=== PATIENT | male | born 1955 | race African-American/Black ===

== ENCOUNTER 2019-07-31 19:23 | Inpatient (IN) | payer OTHER ==
[~2019-07-31] VITALS: Ht 182.9 cm; Wt 72.1 kg
[2019-07-31] MEDS ORDERED: SODIUM CHLORIDE 0.9% 1000ML BAG (SEPSIS BOLUS) IV ONE (21:15)
[2019-07-31] MEDS ORDERED: LEVOFLOXACIN 750MG PREMIX 150 ML IV ONE (21:15)
[2019-07-31 21:25] LABS: BASOPHILS % 0.1 % (0.0-2.0); EOSINOPHILS % 0.1 % (0.0-5.0); HEMATOCRIT. 42.4 % (42.0-52.0); HEMOGLOBIN. 14.5 g/dL (14.0-18.0); LYMPHOCYTES % 8.2 % (20.0-50.0); MEAN CORPUSCULAR HEMOGLOBIN 32.7 pg (28.0-32.0); MEAN CORPUSCULAR VOLUME 95.5 fL (80.0-94.0); MEAN PLATELET VOLUME 9.2 fl (7.4-10.4); MONOCYTES % 10.5 % (2.0-8.0); NEUTROPHILS % 81.1 % (40.0-76.0); PLATELET 188 x1000/uL (130-400); RED BLOOD CELL COUNT 4.44 mill/uL (4.7-6.1); RED CELL DISTRIBUTION WIDTH 13.1 % (11.6-14.6)
[2019-07-31 21:26] LABS: CHLORIDE 99 mEq/L (98-107)
[2019-07-31 21:28] LABS: INR 1.1; PROTHROMBIN TIME 11.8 sec (9.6-11.0)
[2019-07-31 21:31] LABS: CLARITY URINE CLOUDY (CLEAR); COLOR URINE DARK YELLOW (YELLOW); KETONES URINE NEGATIVE (NEGATIVE); LEUKOCYTE ESTERASE URINE 3+ (NEGATIVE); NITRITE URINE NEGATIVE (NEGATIVE); OCCULT BLOOD URINE 2+ (NEGATIVE); PH URINE 5.5 (4.5-8.0); PROTEIN URINE 2+ (NEGATIVE); SPECIFIC GRAVITY URINE 1.017 (1.005-1.030)
[2019-08-01] MEDS ORDERED: ACETAMINOPHEN 325MG TABLET PO ONE (00:15)
[2019-08-01 11:00] VITALS: BP 104/65
[2019-08-01 11:36] LABS: BG BASE EXCESS 0.9 mmol/L (-2.0-2.0); BG CARBOXYHEMOGLOBIN 1.1 % (0.5-1.5); BG DEOXYHEMOGLOBIN 4.5 % (0.0-5.0); BG FRACTION INSPIRED OXYGEN 21; BG HCO3 ACT 24.9 mmol/L (22.0-26.0); BG METHEMOGLOBIN 0.3 % (0.0-1.5); BG OXYGEN SATURATION 95.4 % (92.0-98.5); BG OXYHEMOGLOBIN 94.1 % (94.0-97.0); BG PCO2 37.8 mmHg (35.0-45.0); BG PH 7.437 (7.350-7.450); BG PO2 76.6 mmHg (75.0-100.0); BG SAMPLE SITE RIGHT RADIAL; BG TOTAL HEMOGLOBIN 12.5 g/dL (12.0-18.0); BG VENT MODE ROOM AIR
[2019-08-01] MEDS: ENOXAPARIN 40MG/0.4ML SYR SUBCUT SCH (12:50)
[2019-08-01] MEDS ORDERED: LEVOFLOXACIN 500MG PREMIX 100 ML IV SCH (13:00)
[2019-08-01 16:00] VITALS: BP 120/80
[2019-08-01] MEDS ORDERED: ACETAMINOPHEN 650MG SUPP PR PRN (17:30)
[2019-08-01] MEDS ORDERED: BISACODYL 10MG SUPP PR PRN (17:30)
[2019-08-01] MEDS ORDERED: LACTULOSE 20G/30ML UDC PO PRN (17:30)
[2019-08-01] MEDS ORDERED: IPRATROPIUM/ALBUTEROL 0.5-3(2.5)MG/3ML NEB HHN PRN (17:30)
[2019-08-01] MEDS ORDERED: HYDRALAZINE 20MG/ML VIAL IV PRN (17:30)
[2019-08-01] MEDS ORDERED: HYDROCODONE/ACETAMINOPHEN 5/325MG TABLET PO PRN (17:38)
[2019-08-01] MEDS ORDERED: ALBUTEROL 6.7GM HFA INHALER INH PRN (17:45)
[2019-08-01 17:48] LABS: BG BASE EXCESS 3.6 mmol/L (-2.0-2.0); BG CARBOXYHEMOGLOBIN 1.3 % (0.5-1.5); BG DEOXYHEMOGLOBIN 5.2 % (0.0-5.0); BG HCO3 ACT 27.4 mmol/L (22.0-26.0); BG METHEMOGLOBIN 0.3 % (0.0-1.5); BG OXYGEN SATURATION 94.7 % (92.0-98.5); BG OXYHEMOGLOBIN 93.2 % (94.0-97.0); BG PCO2 38.7 mmHg (35.0-45.0); BG PH 7.468 (7.350-7.450); BG PO2 69.7 mmHg (75.0-100.0); BG SAMPLE SITE RIGHT RADIAL; BG TOTAL HEMOGLOBIN 12.8 g/dL (12.0-18.0); BG VENT MODE ROOM AIR
[2019-08-01] MEDS: SODIUM CHLORIDE 0.45% 1,000 ML IV SCH (18:23)
[2019-08-01 20:00] VITALS: BP 129/84
[2019-08-01 20:51] LABS: BASOPHILS % 0.4 % (0.0-2.0); EOSINOPHILS % 0.2 % (0.0-5.0); HEMATOCRIT. 36.5 % (42.0-52.0); HEMOGLOBIN. 12.4 g/dL (14.0-18.0); LYMPHOCYTES % 10.5 % (20.0-50.0); MEAN CORPUSCULAR HEMOGLOBIN 32.1 pg (28.0-32.0); MEAN CORPUSCULAR VOLUME 94.3 fL (80.0-94.0); MEAN PLATELET VOLUME 8.6 fl (7.4-10.4); MONOCYTES % 12.9 % (2.0-8.0); PLATELET 170 x1000/uL (130-400); RED BLOOD CELL COUNT 3.87 mill/uL (4.7-6.1); RED CELL DISTRIBUTION WIDTH 12.8 % (11.6-14.6)
[2019-08-01 20:54] LABS: CHLORIDE 103 mEq/L (98-107)
[2019-08-01] MEDS ORDERED: VANCOMYCIN 1500MG in DEXTROSE 5% WATER 250ML IV NR (21:00)
[2019-08-01] MEDS: ACETAMINOPHEN 325MG TABLET PO PRN (21:05)
[2019-08-01] MEDS: FAMOTIDINE 20MG TABLET PO SCH (21:05)
[2019-08-01] MEDS ORDERED: PIPERACILLIN/TAZOBACTAM 2.25 G in DEXTROSE 5% WATER 50 ML IV SCH (22:00)
[2019-08-01] MEDS ORDERED: PIPERACILLIN/TAZOBACTAM 3.375 G in DEXT 5% WATER 100 ML IV SCH (22:00)
[2019-08-02] VITALS (7 sets, daily range): BP systolic 121–153; BP diastolic 79–98
[2019-08-02] MEDS ORDERED: METO-385 PO (01:12)
[2019-08-02] MEDS ORDERED: CHOL40002 PO (01:12)
[2019-08-02] MEDS ORDERED: CALC0.5C10 PO (01:12)
[2019-08-02] MEDS ORDERED: CHLO100T22 PO (01:13)
[2019-08-02] MEDS ORDERED: OXYB5SYR2 PO (01:13)
[2019-08-02] MEDS ORDERED: VANCOMYCIN 750 MG PREMIX 150 ML IV SCH (06:00)
[2019-08-02 07:00] LABS: HEMATOCRIT. 34.2 % (42.0-52.0); HEMOGLOBIN. 11.7 g/dL (14.0-18.0); MEAN CORPUSCULAR HEMOGLOBIN 32.3 pg (28.0-32.0); MEAN PLATELET VOLUME 8.6 fl (7.4-10.4); PLATELET 174 x1000/uL (130-400); RED BLOOD CELL COUNT 3.64 mill/uL (4.7-6.1); RED CELL DISTRIBUTION WIDTH 12.8 % (11.6-14.6)
[2019-08-02 07:13] LABS: CHLORIDE 105 mEq/L (98-107)
[2019-08-02 07:20] LABS: LDL CHOLESTEROL 69 mg/dL (5-100)
[2019-08-02 07:25] LABS: HDL CHOLESTEROL 20 mg/dL (40-59)
[2019-08-02] MEDS ORDERED: PIPERACILLIN/TAZOBACTAM 3.375 G in DEXT 5% WATER 100 ML IV SCH (09:00)
[2019-08-02] MEDS: ENOXAPARIN 40MG/0.4ML SYR SUBCUT SCH (10:27)
[2019-08-02] MEDS: ACETAMINOPHEN 325MG TABLET PO PRN (11:37)
[2019-08-02] MEDS ORDERED: SODIUM CHLORIDE 0.9% 500 ML IV ONE (12:00)
[2019-08-02 13:06] LABS: PLATELET ESTIMATE NORMAL
[2019-08-02] MEDS: SODIUM CHLORIDE 0.45% 1,000 ML IV SCH (14:00)
[2019-08-02] MEDS: CEFAZOLIN 1000MG PREMIX 50 ML IV SCH ×2 (16:00→21:10)
[2019-08-02] MEDS ORDERED: POTASSIUM CHLORIDE 20MEQ TABLET SR PO NR (16:30)
[2019-08-02] MEDS ORDERED: GENTAMICIN 80MG PREMIX 100 ML IV SCH (17:00)
[2019-08-02] MEDS: FAMOTIDINE 20MG TABLET PO SCH (21:06)
[2019-08-02] MEDS: DIPHENHYDRAMINE 50MG/ML VIAL IV PRN (21:07)
[2019-08-03] VITALS (10 sets, daily range): BP systolic 118–147; BP diastolic 75–92
[2019-08-03] MEDS: SODIUM CHLORIDE 0.45% 1,000 ML IV SCH ×3 (01:12→22:53)
[2019-08-03] MEDS: CEFAZOLIN 1000MG PREMIX 50 ML IV SCH ×3 (04:36→22:55)
[2019-08-03] MEDS: ACETAMINOPHEN 325MG TABLET PO PRN (04:37)
[2019-08-03 05:54] LABS: HEMATOCRIT. 31.1 % (42.0-52.0); HEMOGLOBIN. 10.9 g/dL (14.0-18.0); MEAN CORPUSCULAR VOLUME 93.6 fL (80.0-94.0); MEAN PLATELET VOLUME 8.2 fl (7.4-10.4); PLATELET 193 x1000/uL (130-400); RED BLOOD CELL COUNT 3.32 mill/uL (4.7-6.1); RED CELL DISTRIBUTION WIDTH 12.9 % (11.6-14.6)
[2019-08-03 05:58] LABS: CHLORIDE 106 mEq/L (98-107)
[2019-08-03] MEDS: ENOXAPARIN 40MG/0.4ML SYR SUBCUT SCH (08:04)
[2019-08-03 13:55] LABS: ATYPICAL LYMPHOCYTES 1; PLATELET ESTIMATE NORMAL
[2019-08-03] MEDS ORDERED: POTASSIUM CHLORIDE 20MEQ TABLET SR PO NR (14:15)
[2019-08-03] MEDS: GENTAMICIN 100MG PREMIX 50 ML IV SCH (18:02)
[2019-08-03] MEDS: FAMOTIDINE 20MG TABLET PO SCH (21:00)
[2019-08-04] VITALS (13 sets, daily range): BP systolic 130–157; BP diastolic 81–115
[2019-08-04] MEDS: GENTAMICIN 100MG PREMIX 50 ML IV SCH ×3 (02:24→16:56)
[2019-08-04 06:44] LABS: BASOPHILS % 0.5 % (0.0-2.0); EOSINOPHILS % 2.2 % (0.0-5.0); HEMATOCRIT. 31.7 % (42.0-52.0); HEMOGLOBIN. 10.8 g/dL (14.0-18.0); LYMPHOCYTES % 18.3 % (20.0-50.0); MEAN CORPUSCULAR HEMOGLOBIN 32.2 pg (28.0-32.0); MEAN PLATELET VOLUME 7.8 fl (7.4-10.4); MONOCYTES % 11.5 % (2.0-8.0); NEUTROPHILS % 67.5 % (40.0-76.0); PLATELET 220 x1000/uL (130-400); RED BLOOD CELL COUNT 3.37 mill/uL (4.7-6.1); RED CELL DISTRIBUTION WIDTH 12.6 % (11.6-14.6)
[2019-08-04 06:52] LABS: CHLORIDE 105 mEq/L (98-107)
[2019-08-04] MEDS: CEFAZOLIN 1000MG PREMIX 50 ML IV SCH ×3 (07:07→21:00)
[2019-08-04] MEDS: SODIUM CHLORIDE 0.45% 1,000 ML IV SCH (07:12)
[2019-08-04] MEDS: ENOXAPARIN 40MG/0.4ML SYR SUBCUT SCH (08:22)
[2019-08-04] MEDS ORDERED: DILTIAZEM HCL 30MG TABLET PO NR (11:00)
[2019-08-04] MEDS ORDERED: LEVO500T2 MT (11:38)
[2019-08-04] MEDS ORDERED: DILTIAZEM HCL 30MG TABLET PO SCH (12:00)
[2019-08-04] MEDS: DILTIAZEM HCL 30MG TABLET PO SCH ×2 (16:56→23:15)
[2019-08-04] MEDS: GENTAMICIN 120MG PREMIX 100 ML IV SCH (20:49)
[2019-08-04] MEDS: FAMOTIDINE 20MG TABLET PO SCH (20:50)
[2019-08-04] MEDS: DIPHENHYDRAMINE 50MG/ML VIAL IV PRN (20:51)
[2019-08-05] VITALS (11 sets, daily range): BP systolic 114–143; BP diastolic 69–98
[2019-08-05] MEDS: CEFAZOLIN 1000MG PREMIX 50 ML IV SCH ×3 (05:09→22:38)
[2019-08-05] MEDS: DILTIAZEM HCL 30MG TABLET PO SCH ×3 (05:09→18:35)
[2019-08-05 06:57] LABS: CHLORIDE 105 mEq/L (98-107)
[2019-08-05 07:05] LABS: GENTAMICIN RANDOM 1.1 ug/mL
[2019-08-05] MEDS: ENOXAPARIN 40MG/0.4ML SYR SUBCUT SCH (08:05)
[2019-08-05] MEDS: GENTAMICIN 120MG PREMIX 100 ML IV SCH (08:05)
[2019-08-05 15:30] LABS: HEMATOCRIT 32.1 % (42.0-52.0); HEMOGLOBIN 10.9 g/dL (14.0-18.0); MEAN CORPUSCULAR VOLUME 94.4 fL (80.0-94.0); PLATELET 307 x1000/uL (130-400)
[2019-08-05] MEDS: FAMOTIDINE 20MG TABLET PO SCH (20:08)
[2019-08-05] MEDS: GENTAMICIN SULFATE 140 MG in SODIUM CHLORIDE 0.9% 100 ML IV SCH (20:09)
[2019-08-06] VITALS (12 sets, daily range): BP systolic 116–159; BP diastolic 65–92
[2019-08-06] MEDS: DILTIAZEM HCL 30MG TABLET PO SCH ×4 (00:35→18:08)
[2019-08-06] MEDS: CEFAZOLIN 1000MG PREMIX 50 ML IV SCH ×3 (05:46→21:21)
[2019-08-06] MEDS: ENOXAPARIN 40MG/0.4ML SYR SUBCUT SCH (08:38)
[2019-08-06] MEDS: GENTAMICIN SULFATE 140 MG in SODIUM CHLORIDE 0.9% 100 ML IV SCH (08:48)
[2019-08-06] MEDS: FAMOTIDINE 20MG TABLET PO SCH (21:21)
[2019-08-07] VITALS (13 sets, daily range): BP systolic 80–144; BP diastolic 47–93
[2019-08-07] MEDS: DILTIAZEM HCL 30MG TABLET PO SCH ×4 (00:08→17:20)
[2019-08-07] MEDS: CEFAZOLIN 1000MG PREMIX 50 ML IV SCH ×2 (05:17→13:10)
[2019-08-07 06:28] LABS: BASOPHILS % 0.4 % (0.0-2.0); EOSINOPHILS % 1.7 % (0.0-5.0); HEMATOCRIT. 33.2 % (42.0-52.0); HEMOGLOBIN. 11.5 g/dL (14.0-18.0); LYMPHOCYTES % 13.2 % (20.0-50.0); MEAN CORPUSCULAR HEMOGLOBIN 33.2 pg (28.0-32.0); MEAN CORPUSCULAR VOLUME 95.9 fL (80.0-94.0); MEAN PLATELET VOLUME 7.7 fl (7.4-10.4); MONOCYTES % 6.5 % (2.0-8.0); NEUTROPHILS % 78.2 % (40.0-76.0); PLATELET 379 x1000/uL (130-400); RED BLOOD CELL COUNT 3.47 mill/uL (4.7-6.1); RED CELL DISTRIBUTION WIDTH 12.8 % (11.6-14.6)
[2019-08-07 06:34] LABS: CHLORIDE 102 mEq/L (98-107)
[2019-08-07] MEDS: ENOXAPARIN 40MG/0.4ML SYR SUBCUT SCH (08:56)
[2019-08-07] MEDS: LEVOFLOXACIN 500MG TABLET PO SCH (15:55)
[2019-08-07 16:51] LABS: CLARITY URINE CLEAR (CLEAR); COLOR URINE YELLOW (YELLOW); KETONES URINE NEGATIVE (NEGATIVE); LEUKOCYTE ESTERASE URINE 1+ (NEGATIVE); NITRITE URINE NEGATIVE (NEGATIVE); OCCULT BLOOD URINE TRACE (NEGATIVE); PROTEIN URINE NEGATIVE (NEGATIVE); SPECIFIC GRAVITY URINE 1.018 (1.005-1.030)
[2019-08-07] MEDS: FAMOTIDINE 20MG TABLET PO SCH (20:05)
[2019-08-08] VITALS (12 sets, daily range): BP systolic 106–138; BP diastolic 73–94
[2019-08-08] MEDS: DILTIAZEM HCL 30MG TABLET PO SCH ×4 (00:24→18:28)
[2019-08-08 06:17] LABS: BASOPHILS % 0.4 % (0.0-2.0); EOSINOPHILS % 1.6 % (0.0-5.0); HEMATOCRIT. 33.5 % (42.0-52.0); HEMOGLOBIN. 11.5 g/dL (14.0-18.0); LYMPHOCYTES % 16.5 % (20.0-50.0); MEAN CORPUSCULAR HEMOGLOBIN 32.7 pg (28.0-32.0); MEAN CORPUSCULAR VOLUME 94.9 fL (80.0-94.0); MEAN PLATELET VOLUME 7.5 fl (7.4-10.4); NEUTROPHILS % 74.5 % (40.0-76.0); PLATELET 444 x1000/uL (130-400); RED BLOOD CELL COUNT 3.52 mill/uL (4.7-6.1); RED CELL DISTRIBUTION WIDTH 13.1 % (11.6-14.6)
[2019-08-08 06:21] LABS: CHLORIDE 101 mEq/L (98-107)
[2019-08-08] MEDS: ENOXAPARIN 40MG/0.4ML SYR SUBCUT SCH (10:03)
[2019-08-08] MEDS: LEVOFLOXACIN 500MG TABLET PO SCH (10:03)
[2019-08-08] MEDS: FAMOTIDINE 20MG TABLET PO SCH (20:19)
[2019-08-09] VITALS (9 sets, daily range): BP systolic 94–129; BP diastolic 67–90
[2019-08-09] MEDS: DILTIAZEM HCL 30MG TABLET PO SCH ×3 (00:21→11:32)
[2019-08-09 06:40] LABS: HEMATOCRIT 36.6 % (42.0-52.0); HEMOGLOBIN 12.2 g/dL (14.0-18.0); MEAN CORPUSCULAR VOLUME 96.3 fL (80.0-94.0); PLATELET 507 x1000/uL (130-400); RED CELL DISTRIBUTION WIDTH 13.2 % (11.6-14.6)
[2019-08-09] MEDS: ENOXAPARIN 40MG/0.4ML SYR SUBCUT SCH (08:23)
[2019-08-09] MEDS: LEVOFLOXACIN 500MG TABLET PO SCH (11:32)
== END 2019-08-09 15:34 | disposition home or self-care (01) | DRG 720 ==
LOC: ER 19:23 → 7WST 08-01 00:08 → EDBEDREQ 08-01 00:10 → EDBEDREQTM 08-01 00:10 → EDBEDREQSVC 08-01 00:10 → EDBEDREQDT 08-01 00:10 → ENRESERV 08-01 07:46 → 7WST 08-01 11:14 → 3WST 08-02 15:54
PROVIDERS: ADMIT Internal Medicine; ATTEND Internal Medicine
DX: A41.51 Sepsis due to Escherichia coli [E. coli] (principal); R65.21 Severe sepsis with septic shock; G93.40 Encephalopathy, unspecified; I50.33 Acute on chronic diastolic (congestive) heart failure; J18.9 Pneumonia, unspecified organism; R17 Unspecified jaundice; I11.0 Hypertensive heart disease with heart failure; I27.20 Pulmonary hypertension, unspecified; N39.0 Urinary tract infection, site not specified; N12 Tubulo-interstitial nephritis, not specified as acute or chronic; E83.52 Hypercalcemia; R06.03 Acute respiratory distress; E87.6 Hypokalemia; D64.9 Anemia, unspecified; R73.9 Hyperglycemia, unspecified; Z03.818 Encounter for observation for suspected exposure to other biological agents ruled out
CPT/HCPCS: 36415; 36600; 71045; 74018; 74176; 76770; 80048; 80053; 80061; 80170; 81003; 82140; 82375; 82805; 83605; 84145; 84153; 84439; 84443; 84484; 85025; 85027; 85379; 87077; 87186; 93005; 93306; 93970; 97162; 99291; J0690; J1200; J1580; J1650; J1956; J2543; J3370; J7030; J7050; J7060; G0103; U0003-CS